=== PATIENT | female | born 1965 | race Hispanic/Latino ===

== ENCOUNTER 2016-12-04 17:53 | Inpatient (IN) | payer MEDICAID ==
[2016-12-04 18:32] LABS: BASO % 0.6 % (0.0-2.0); EOS # 0.2 K/uL (0.0-0.7); EOS % 2.1 % (0.0-4.0); HEMATOCRIT 40.1 % (34.0-47.0); LYMPH # 1.4 K/uL (1.0-4.3); LYMPH % 17.8 % (20.0-40.0); MEAN CELL VOLUME 66.8 fL (81.0-99.0); MEAN CORPUSCULAR HEMOGLOBIN 20.9 pg (27.0-31.0); MEAN CORPUSCULAR HGB CONC 31.3 g/dL (33.0-37.0); MEAN PLATELET VOLUME 9.4 fL (7.2-11.7); MONO # 0.5 K/uL (0.0-0.8); MONO % 6.3 % (0.0-10.0); NRBC % 0.2 % (0.0-2.0); RED CELL DISTRIBUTION WIDTH 16.2 % (11.5-14.5); WHITE BLOOD COUNT 7.6 K/uL (4.8-10.8)
--- NOTE | 2016-12-04 18:41 | C.PDOC ---
History Of Present Illness A 51 y/o female presents to the ER for pre-screening for heroin detox and alcohol abuse. Pt notes her last use was today. Pt denies any complaints at this time. Time Seen by Provider: 12/04/16 18:11 Chief Complaint (Nursing): Substance Abuse History Per: Patient History/Exam Limitations: no limitations Onset/Duration Of Symptoms: Hrs Current Symptoms Are (Timing): Still Present Suicide/Self Injury Attempted (Context): None Modifying Factor(s): Alcohol, Other (Heroin) Severity: Mild Recent travel outside of the [place] States: No Additional History Per: Patient Past Medical History Reviewed: Historical Data, Nursing Documentation, Vital Signs Vital Signs: Last Vital Signs Temp 97.5 F L 12/04/16 18:03 Pulse 95 H 12/04/16 18:03 Resp 18 12/04/16 18:03 BP 142/84 12/04/16 18:03 Pulse Ox 97 12/04/16 18:47 - Medical History PMH: Anemia, Anxiety, Back Problems, Depression, GERD, Chronic Pain (back pain ) Denies: Diabetes, Hepatitis, HIV, HTN, Chronic Kidney Disease, Seizures, Sexually Transmitted Disease Surgical History: Cholecystectomy - [facility] Procedures DETOXIFICATION SERVICES FOR SUBSTANCE ABUSE TREATMENT (08/01/16) INDIV PSYCHOTHERAPY FOR SUBSTANCE ABUSE TREATMENT, SUPPORT (08/01/16) MEDICATION MANAGEMENT (08/01/16) MEDS MGMT FOR SUBSTANCE ABUSE TREATMENT, OTH REPL MED (08/01/16) Family History: States: Unknown Family Hx - Social History Hx Tobacco Use: Yes Hx Alcohol Use: Yes Hx Substance Use: Yes - Immunization History Hx Tetanus Toxoid Vaccination: No Hx Influenza Vaccination: No Hx Pneumococcal Vaccination: No Review Of Systems Except As Marked, All Systems Reviewed And Found Negative. Constitutional: Positive for: Other (Heroin and ETOH abuse). Negative for: Fever, Chills Gastrointestinal: Negative for: Nausea, Vomiting, Diarrhea Psych: Negative for: Suicidal ideation Physical Exam - Physical Exam Appears: Non-toxic, No Acute Distress Skin: Warm, Dry Head: Atraumatic, Normacephalic Eye(s): bilateral: Normal Inspection, PERRL, EOMI Cardiovascular: Rhythm Regular, No Murmur Respiratory: Normal Breath Sounds, No Rales, No Rhonchi, No Wheezing Extremity: Other (Extensive tracts bilaterally on the forearms) Neurological/Psych: Normal Speech, Normal Motor, Normal Sensation, Other (Awake and alert) ED Course And Treatment - Laboratory Results Result Diagrams: 12/04/16 18:29 12/04/16 18:29 Lab Interpretation: Abnormal (tpx + benzo, cocaine, opiates) O2 Sat by Pulse Oximetry: 97 (RA) Pulse Ox Interpretation: Normal Reevaluation Time: 19:50 Reassessment Condition: Unchanged - Physician Consult Information Outcome Of Conversation: d/w Crisis workers @ 1800 and 2000- ok to Detox Medical Decision Making Medical Decision Making: Impression: 51 y/o for heroin detox Plans: -Bloodlabs -UA -Reassess and disposition Patient is resting comfortably, and is in no acute distress. Patient was instructed to follow up with PMD in 1-2 days for further evaluation. Disposition Doctor Will See Patient In The: Hospital Counseled Patient/Family Regarding: Studies Performed, Diagnosis - Disposition Disposition: HOSPITALIZED Disposition Time: 19:51 Condition: GOOD - Clinical Impression Clinical Impression: Polysubstance (including opioids) dependence with physiol dependence - Scribe Statement The provider has reviewed the documentation as recorded by the Scribfeliberto acuna All medical record entries made by the Mikkiibfeliberto were at my direction and personally dictated by me. I have reviewed the chart and agree that the record accurately reflects my personal performance of the history, physical exam, medical decision making, and the department course for this patient. I have also personally directed, reviewed, and agree with the discharge instructions and disposition.
[2016-12-04 18:56] LABS: CHLORIDE 95 mmol/L (98-107); SODIUM 138 mmol/L (132-148)
[2016-12-04 18:58] LABS: BILIRUBIN,TOTAL 0.8 mg/dL (0.2-1.3); CARBON DIOXIDE 31 mmol/L (22-30); GFR AFRICAN-AMERICAN > 60
[2016-12-04 18:59] LABS: ALCOHOL SERUM < 10 mg/dl (0-10); ALKALINE PHOSPHATASE 178 U/L (38-126); ALT/SGPT 56 U/L (9-52); AST/SGOT 65 U/L (14-36); BLOOD UREA NITROGEN 12 mg/dL (7-17); CALCIUM 9.4 mg/dl (8.6-10.4); GLUCOSE,RANDOM 107 mg/dL (65-105); TOTAL PROTEIN 9.3 g/dL (6.3-8.3)
[2016-12-04 19:01] LABS: RBC URINE 2 /hpf (0-3); URINE BACTERIA RARE (<OCC); URINE BILIRUBIN 1+ (NEGATIVE); URINE GLUCOSE (UA) NORMAL (Normal); URINE KETONE TRACE mg/dL (NEGATIVE); URINE PROTEIN 1+ mg/dL (NEGATIVE)
[2016-12-04 19:03] LABS: URINE BLOOD 1+ (NEGATIVE); URINE COLOR YELLOW (YELLOW); URINE LEUKOCYTE ESTERASE TRACE Leu/uL (Negative)
[2016-12-04 19:04] LABS: WBC URINE 4 /hpf (0-5)
[2016-12-05] MEDS ORDERED: Aluminum Hydroxide/Magnesium Hydroxide Susp (30 mL) PO PRN (10:07)
--- NOTE | 2016-12-05 12:52 | PCM.PSYCH ---
Initial Psychiatric Evaluation - Initial Psychiatric Evaluation Type of Admission: Voluntary Legal Status: Capacity Chief Complaint (in patient's own words): "I'm back" History of Present Illness and Precipitating Events: The patient is seen, chart reviewed and case discussed. This is a 51-year-old woman, living alone but sometimes boyfriend comes, unemployed, on SSI, she is known to us from a recent admission. The patient states she has been clean "54 days" after her July detox here. Now she uses up to 10 bags of heroin a day, intranasally, and 1 or 2 Percocets. She also uses cocaine on and off intranasally and she takes 3 mg Xanax. She claims that without Xanax she has excessive anxiety and panic attacks. She reports mild withdrawal symptoms as she used it last night. She denies feeling depressed and she looked somewhat hypomanic because she was very jovial and pressured speech Past psych history: Denies suicide attempts but was diagnosed with depression and anxiety. No trauma. Medical history: Back pain Family psych history: Unknown T Current Medications: Active Medications Generic Name Dose Route Start Last Admin Trade Name Freq PRN Reason Stop Dose Admin Al Hydrox/Mg Hydrox/Simethicone 30 ml 12/05/16 10:07 Maalox 30 Ml PO TID PRN Indigestion / Heartburn Chlordiazepoxide 25 mg 12/04/16 21:00 12/04/16 21:18 Librium PO 25 mg Q6 PRN Administration benzo withdrawal Chlordiazepoxide 25 mg 12/05/16 12:00 12/05/16 12:25 Librium PO 12/09/16 11:59 25 mg Q6 AYLIN Administration Taper Clonidine HCl 0.1 mg 12/05/16 10:07 12/05/16 12:27 Catapres PO 0.1 mg Q8 PRN Administration COWS Score More or Equal to 5 Gabapentin 300 mg 12/05/16 14:00 Neurontin PO TID AYLIN Hydroxyzine HCl 25 mg 12/05/16 10:06 12/05/16 12:25 Atarax PO 25 mg Q4H PRN Administration Anxiety Loperamide HCl 2 mg 12/05/16 10:07 Imodium PO Q8 PRN Diarrhea Methadone HCl 15 mg 12/05/16 10:00 12/05/16 10:35 Methadone PO 05/16/17 09:59 15 mg Q24H AYLIN Administration Taper Ondansetron HCl 4 mg 12/05/16 10:07 Zofran Tab PO Q8 PRN Nausea/Vomiting Sertraline HCl 100 mg 12/05/16 10:15 12/05/16 10:35 Zoloft PO 100 mg DAILY AYLIN Administration Trazodone HCl 100 mg 12/04/16 21:02 12/04/16 22:02 Desyrel PO 100 mg HS PRN Administration Insomnia Past Psychiatric History - Past Psychiatric History Previous Treatment History: None Pertinent Medical Hx (Current Medical&Sleep Prob, Allergies): Allergies Allergy/AdvReac Type Severity Reaction Status Date / Time No Known Allergies Allergy Verified 10/06/16 16:55 Alprazolam [Xanax] 1 mg PO TID 08/01/16 oxyCODONE/Acetaminophen [Percocet 5/325 mg Tab] 1 tab PO TID 08/01/16 Gabapentin [Neurontin] 300 mg PO TID #90 cap 08/05/16 Sertraline [Zoloft] 100 mg PO DAILY #30 tab 08/05/16 traZODone [Desyrel] 100 mg PO HS PRN #30 tab 08/05/16 Carisoprodol [Soma] 350 mg PO TID 12/04/16 Review of Systems - Psychiatric Psychiatric: Abnormal Sleep Pattern, Anxiety, Difficulty Concentrating, Irritability. absent: Hallucinations, Homicidal Ideation, Paranoia, Suicidal Ideation Mental Status Examination - Personal Presentation Personal Presentation: Looks older than stated age - Affect Affect: Other (labile) - Motor Activity Motor Activity: Other (restless) - Reliability in Providing Information Reliability in Providing Information: Fair - Speech Speech: Other (pressured) - Mood Mood: Anxious, Other (labile) - Formal Thought Process Formal Thought Process: Loosening of associations - Cognitive Functions Orientation: Person, Place, Situation, Time Sensorium: Alert Attention/Concentration: Easily distracted Estimate of Intelligence: Average Judgement: Intact, as evidence by: Insight regarding need for hospitalization Memory: Recent intact, as evidence by: Ability to recall events of the day, Remote intact, as evidenced by: Abilit to recall sig. life events - Risk Risk: Withdrawal, Diminished functioning - Strength & Assets Inventory Strength & Assets Inventory: Cooperative - Limitations Limitations: Living alone DSM 5 DX - DSM 5 DSM 5 Diagnosis: Opioid withdrawal Opioid use d/o - severe Sedative hypnotic use d/o - severe TATIANA Panic d/o r/o bipolar II - Recommended/Plan of Treatment Treatment Recommendations and Plan of Treatment: Opioids: - Subutex detox -As needed medications -Support and psychoeducation -NE and CBT -Attend groups and activities -refer to IOP -Refer to MAT Benzos: -Psychoeducation given on risks -NE and CBT -Librium taper -Gabapentin -Refer to IOP TATIANA and panic disorder: -Zoloft -CBT -Supportive therapy 32 min Projected ELOS: 4 days Prognosis: good - Smoking Cessation Smoking Cessation Initiated: Yes
--- NOTE | 2016-12-06 14:38 | PCM.PYCHPN ---
Psychiatric Progress Note - Psychiatric Progress Note Patient seen today, length of contact: 16 min Patient Chief Complaint: "I'm still withdrawing" Problems Identified/Issues Discussed: The pt is seen, chart reviewed, case discussed with staff. The pt is compliant with medications and reports no side-effects. Symptoms are improving but needs more time to stabilize. After care discussed, support and psychoeducation given. Medication Change: Yes (5 mg extra methadone) Medical Record Reviewed: Yes Mental Status Examination - Cognitive Function Orientation: Person, Place, Situation, Time - Mood Mood: Anxious, Other (labile) - Affect Affect: Other (labile) - Formal Thought Process Formal Thought Process: Loosening of associations - Homicidal Ideation Homicidal Ideation: No Goal/Treatment Plan - Goal/Treatment Plan Need for Continued Stay: Discharge may exacerbated symptoms, Severe functional impairment Progress Toward Problem(s) and Goals/Treatment Plan: Opioids: - Subutex detox -As needed medications -Support and psychoeducation -AL and CBT -Attend groups and activities -refer to IOP -Refer to MAT Benzos: -Psychoeducation given on risks -AL and CBT -Librium taper -Gabapentin -Refer to IOP TATIANA and panic disorder: -Zoloft -CBT -Supportive therapy Estimated Date of D/C: 12/09/16
--- NOTE | 2016-12-08 01:43 | PCM.PYCHPN ---
Psychiatric Progress Note - Psychiatric Progress Note Patient seen today, length of contact: 16 min Patient Chief Complaint: "I'm not OK yet" Problems Identified/Issues Discussed: The pt is seen, chart reviewed, case discussed with staff. The pt is compliant with medications and reports no side-effects. Symptoms are improving but needs more time to stabilize. Very anxious After care discussed, support and psychoeducation given. Medication Change: Yes (detox changes daily) Medical Record Reviewed: Yes Mental Status Examination - Cognitive Function Orientation: Person, Place, Situation, Time Memory: Intact Attention: Poor Concentration: Poor Association: Loose Fund of Knowledge: Poor - Mood Mood: Anxious, Other (labile) - Affect Affect: Other (labile) - Speech Speech: Appropriate - Formal Thought Process Formal Thought Process: Loosening of associations (less) - Suicidal Ideation Suicidal Ideation: No - Homicidal Ideation Homicidal Ideation: No Goal/Treatment Plan - Goal/Treatment Plan Need for Continued Stay: Discharge may exacerbated symptoms, Severe functional impairment Progress Toward Problem(s) and Goals/Treatment Plan: Opioids: - Subutex detox -As needed medications -Support and psychoeducation -KY and CBT -Attend groups and activities -refer to IOP -Refer to MAT Benzos: -Psychoeducation given on risks -KY and CBT -Librium taper -Gabapentin -Refer to IOP TATIANA and panic disorder: -Zoloft -CBT -Supportive therapy Estimated Date of D/C: 12/09/16
--- NOTE | 2016-12-08 14:13 | PCM.PYCHPN ---
Psychiatric Progress Note - Psychiatric Progress Note Patient seen today, length of contact: 16 min Patient Chief Complaint: "I'm tired" Problems Identified/Issues Discussed: The pt is seen, chart reviewed, case discussed with staff. The pt is compliant with medications and reports no side-effects. Symptoms are improving, less anxious and still has some sleep issues. Her insight into risks of benzos is minimal and is likely feigning motivation to stop. She sincerely believes she needs them for life. NE used again After care discussed, support and psychoeducation given. Medication Change: Yes (increase seroquel) Medical Record Reviewed: Yes Mental Status Examination - Cognitive Function Orientation: Person, Place, Situation, Time Memory: Intact Attention: Poor Concentration: Poor Association: Loose Fund of Knowledge: Poor - Mood Mood: Anxious, Other (labile) - Affect Affect: Other (labile) - Speech Speech: Appropriate - Formal Thought Process Formal Thought Process: Loosening of associations (much less) - Suicidal Ideation Suicidal Ideation: No - Homicidal Ideation Homicidal Ideation: No Goal/Treatment Plan - Goal/Treatment Plan Need for Continued Stay: Discharge may exacerbated symptoms, Severe functional impairment Progress Toward Problem(s) and Goals/Treatment Plan: Opioids: - Subutex detox -As needed medications -Support and psychoeducation -NE and CBT -Attend groups and activities -refer to IOP -Refer to MAT Benzos: -Psychoeducation given on risks -NE and CBT -Librium taper -Gabapentin -Refer to IOP TATIANA and panic disorder: -Zoloft -CBT -Supportive therapy Estimated Date of D/C: 12/09/16
--- NOTE | 2016-12-09 08:40 | PCM.PYCHDC ---
Mental Status Examination - Mental Status Examination Orientation: Person, Place, Situation, Time Memory: Intact Mood: Anxious Affect: Broad Speech: Appropriate Attention: WNL Concentration: WNL Association: WNL Fund of Knowledge: WNL Formal Thought Process: No Impairment Suicidal Ideation: No Current Homicidal Ideation?: No Discharge Summary - Discharge Note Reason for Hospitalization: Heroin detox Consultations:: List each consultation separately and include: 1. Reason for request. 2. Findings. 3. Follow-up Summary of Hospital Course include:: 1. Description of specific treatment plan utilized for patients during their course of treatmen. 2. Summarize the time- course for resolution of acute symptoms and/or regressed behaviors. 3. Describe issues identified and worked on during hospitalization. 4. Describe medication utilized. 5. Describe medical problems identified and treated. 6. Reassessment of suicide risk Summary of Hospital Course: The patient is seen, chart reviewed and case discussed. On admission: This is a 51-year-old woman, living alone but sometimes boyfriend comes, unemployed, on SSI, she is known to us from a recent admission. The patient states she has been clean "54 days" after her July detox here. Now she uses up to 10 bags of heroin a day, intranasally, and 1 or 2 Percocets. She also uses cocaine on and off intranasally and she takes 3 mg Xanax. She claims that without Xanax she has excessive anxiety and panic attacks. She reports mild withdrawal symptoms as she used it last night. She denies feeling depressed and she looked somewhat hypomanic because she was very jovial and pressured speech Hospital course: Pt feels well, feels anxious, and is ready for discharge. Pt will go to [facility] in [place]. Attended groups. NC, CBT used. Methadone detox completed. Pt responded well to treatment. No major issues or problems, she was motivated. - Final Diagnosis (DSM 5) Condition upon Discharge: GOOD DSM 5: Opioid withdrawal Opioid use d/o - severe Sedative hypnotic use d/o - severe TATIANA Panic d/o r/o bipolar II Disposition: HOME/ ROUTINE Follow-up Treatment Plan: Continue below meds Attend aftercare: [facility] IOP Attend NA Consider MAT Use relapse prevention skills Return to ER if experience suicidal ideation, homicidal ideation, agitation Prescriptions/Medication Reconciliation: busPIRone [Buspar] 15 mg PO BID #60 tab Gabapentin [Neurontin] 400 mg PO TID #90 cap hydrOXYzine HCl [Atarax] 25 mg PO Q8 PRN #60 tab PRN Reason: Anxiety QUEtiapine [SEROquel] 50 mg PO BID #60 tab Sertraline [Zoloft] 100 mg PO HS #30 tab traZODone [Desyrel] 100 mg PO HS PRN #30 tab PRN Reason: Insomnia - Smoking Cessation Smoking Cessation Medication prescribed: No - Antipsychotic Medications Pt discharged on 2 or more routine antipsychotic medications: No
[2016-12-09 09:09] VITALS: BP 113/72; PULSE 69; RESP 16; TEMP 97.8; O2SAT 97
== END 2016-12-09 09:55 | disposition home or self-care (01) | DRG 745 ==
LOC: C.ER 17:53 → C.7D 19:49
PROVIDERS: ADMIT Psychiatry & Neurology Psychiatry; ATTEND Psychiatry & Neurology Psychiatry
DX: F11.23 Opioid dependence with withdrawal (principal); F14.10 Cocaine abuse, uncomplicated; F41.0 Panic disorder [episodic paroxysmal anxiety]; F19.10 Other psychoactive substance abuse, uncomplicated; Z87.891 Personal history of nicotine dependence; F41.9 Anxiety disorder, unspecified; G47.00 Insomnia, unspecified

== ENCOUNTER 2017-07-09 18:13 | Inpatient (IN) | payer MEDICAID ==
[2017-07-09 18:13] VITALS: BMI 24.9
[2017-07-09 19:02] LABS: BASO % 0.3 % (0.0-2.0); EOS # 0.1 K/uL (0.0-0.7); EOS % 1.3 % (0.0-4.0); HEMATOCRIT 38.8 % (34.0-47.0); LYMPH # 2.1 K/uL (1.0-4.3); LYMPH % 31.7 % (20.0-40.0); MEAN CELL VOLUME 67.1 fL (81.0-99.0); MEAN CORPUSCULAR HEMOGLOBIN 20.8 pg (27.0-31.0); MEAN PLATELET VOLUME 9.2 fL (7.2-11.7); MONO # 0.5 K/uL (0.0-0.8); MONO % 7.9 % (0.0-10.0); NRBC % 0.1 % (0.0-2.0); RED CELL DISTRIBUTION WIDTH 16.1 % (11.5-14.5); WHITE BLOOD COUNT 6.5 K/uL (4.8-10.8)
[2017-07-09 19:06] LABS: RBC URINE 7 /hpf (0-3); URINE BACTERIA RARE (<OCC); URINE BILIRUBIN NEGATIVE (NEGATIVE); URINE BLOOD NEGATIVE (NEGATIVE); URINE COLOR Yellow (YELLOW); URINE GLUCOSE (UA) NORMAL (Normal); URINE KETONE NEGATIVE (NEGATIVE); URINE LEUKOCYTE ESTERASE NEG Leu/uL (Negative); URINE PROTEIN NEGATIVE (NEGATIVE); WBC URINE 1 /hpf (0-5)
--- NOTE | 2017-07-09 19:09 | C.PDOC ---
History Of Present Illness 51 year old female with Hx of heroin abuse presents to the ED requesting detox. Patient was prescreened before coming to the ED, she states she uses heroin IV and her last use was [facility]. Patient denies SI/HI, hallucinations, other physical complaints. Chief Complaint (Nursing): Substance Abuse History Per: Patient History/Exam Limitations: no limitations Onset/Duration Of Symptoms: Hrs Current Symptoms Are (Timing): Gone Suicide/Self Injury Attempted (Context): None Modifying Factor(s): Other (Heroin) Associated Symptoms: denies: Depression, Suicidal Thoughts, Suicidal Plan Involuntary Hold By: None Recent travel outside of the [place]: No Additional History Per: Patient Past Medical History Reviewed: Historical Data, Nursing Documentation, Vital Signs Vital Signs: Last Vital Signs Temp 97.5 F L 07/09/17 18:15 Pulse 81 07/09/17 18:15 Resp 19 07/09/17 18:15 BP 137/87 07/09/17 18:15 Pulse Ox 95 07/09/17 19:09 - Medical History PMH: Anemia (Hx.), Anxiety, Arthritis, Back Problems, Depression, Fractures (HX: FX. LEFT TIBIA AND ANKLE), GERD, Chronic Pain (back pain ) Denies: Diabetes, Hepatitis, HIV, HTN, Chronic Kidney Disease, Seizures, Sexually Transmitted Disease Surgical History: Cholecystectomy - [facility] Procedures DETOXIFICATION SERVICES FOR SUBSTANCE ABUSE TREATMENT (08/01/16) INDIV PSYCHOTHERAPY FOR SUBSTANCE ABUSE TREATMENT, SUPPORT (08/01/16) MEDICATION MANAGEMENT (08/01/16) MEDS MGMT FOR SUBSTANCE ABUSE TREATMENT, OTH REPL MED (08/01/16) Family History: States: Unknown Family Hx - Social History Hx Tobacco Use: Yes Hx Alcohol Use: No Hx Substance Use: Yes (IV) - Immunization History Hx Tetanus Toxoid Vaccination: No Hx Influenza Vaccination: No Hx Pneumococcal Vaccination: No Review Of Systems Constitutional: Negative for: Fever, Chills Cardiovascular: Negative for: Chest Pain, Palpitations Respiratory: Negative for: Cough, Shortness of Breath Gastrointestinal: Negative for: Nausea, Vomiting, Abdominal Pain Skin: Negative for: Rash Neurological: Negative for: Weakness, Numbness Physical Exam - Physical Exam Appears: Non-toxic, No Acute Distress Skin: Normal Color, Warm, Dry Head: Atraumatic, Normacephalic Nose: No Discharge Oral Mucosa: Moist Neck: Normal ROM, Supple Chest: Symmetrical Cardiovascular: Rhythm Regular, No Murmur Respiratory: Normal Breath Sounds, No Rales, No Rhonchi, No Wheezing Gastrointestinal/Abdominal: Soft, No Tenderness Extremity: Normal ROM, No Pedal Edema, No Calf Tenderness, No Swelling Neurological/Psych: Oriented x3, Normal Speech, Normal Cognition Gait: Steady ED Course And Treatment - Laboratory Results Result Diagrams: 07/09/17 18:54 07/09/17 18:54 O2 Sat by Pulse Oximetry: 95 (On RA) Pulse Ox Interpretation: Normal Medical Decision Making Medical Decision Making: Impression : Heroin detox Plan: * EKG * UA * Blood work Disposition - Disposition Forms: [facility] (Sinhala) - Scribe Statement The provider has reviewed the documentation as recorded by the Scribe Teodoro Huffman All medical record entries made by the Scribe were at my direction and personally dictated by me. I have reviewed the chart and agree that the record accurately reflects my personal performance of the history, physical exam, medical decision making, and the department course for this patient. I have also personally directed, reviewed, and agree with the discharge instructions and disposition.
[2017-07-09 19:12] LABS: ALB/GLOB RATIO 0.7 (1.0-2.1); ALCOHOL SERUM < 10 mg/dl (0-10); ALKALINE PHOSPHATASE 163 U/L (38-126); ALT/SGPT 78 U/L (9-52); AST/SGOT 44 U/L (14-36); BILIRUBIN,TOTAL 0.7 mg/dL (0.2-1.3); BLOOD UREA NITROGEN 17 mg/dL (7-17); CALCIUM 9.1 mg/dl (8.6-10.4); CARBON DIOXIDE 27 mmol/L (22-30); CHLORIDE 104 mmol/L (98-107); GFR AFRICAN-AMERICAN > 60; GLUCOSE,RANDOM 72 mg/dL (65-105); POTASSIUM 4.5 mmol/L (3.6-5.2); SODIUM 137 mmol/L (132-148); TOTAL PROTEIN 9.7 g/dL (6.3-8.3)
--- NOTE | 2017-07-09 21:14 | PCM.BM ---
<Sarah Starks - Last Filed: 07/09/17 21:13> Treatment Plan Problems - Problems identified on initial assessmt POTIENTIAL FOR OPIATE WITHDRAWAL Date Initiated: 07/09/17 Time Initiated: 21:13 Assessment reference: NA Status: Active Treatment assets and liabiliti Patient Assests: ADL independent Patient Liabilities: substance abuse, medical problems - Milieu Protocol Maintain good personal hygiene: daily Encourage regular showers, daily Remind patient to perform daily oral care, daily Assist patient to perform ADL's Maintain personal safety: every shift Educate patient to report safety concerns to staff, every shift Monitor environment for contraband/sharps Medication safety: Monitor for expected outcome, potential side effects: every shift, Assess barriers to learning: every shift, Assess readiness for medication education: every shift <Ivory Stearns - Last Filed: 07/10/17 15:04> Family Contact Family involvement: Famliy/SO not involved Family contact: Patient agrees to contact - Goals for Treatment Patient goals for treatment: Complete detox and attend an IOP near her home. Discharge/Continuing Care - Education Needs Education Needs: Patient Medication, Patient Diagnosis/Disease Process, Patient Coping Skills, Patient Anger Management skills, Patient Placement options, Patient Community resources - Discharge Discharge Criteria: Ability to care for self, No longer exhibiting s/s of withdrawal, Reduction of target symptoms Discharge to:: Home - Treatment Team Participation Patient/Family/SO Statement: 07/10/17 15:05 "I wanna go to [facility]. It's near my house." Discussed with Family/SO: No Was Patient/Family/SO present at Treatment Team Meeting: Yes <Lizzeth Alarcon - Last Filed: 07/12/17 18:08> - Diagnosis (1) Opioid use disorder, severe, dependence Status: Acute Interventions: 07/12/17 18:08 * Assess 7x/week regarding severity of withdrawal * Educate regarding risks, benefits, side effects and alternatives of medications * Use Motivational Interviewing for abstinence * Use CBT for relapse prevention * Medication management for withdrawal symptoms * Encourage medication assisted treatment *
[2017-07-09] MEDS ORDERED: Tramadol 25 mg PO PRN (21:46)
[2017-07-09] MEDS ORDERED: Aluminum Hydroxide/Magnesium Hydroxide Susp (30 mL) PO PRN (22:03)
--- NOTE | 2017-07-10 08:16 | RAD ---
Chest x-ray single frontal view History: Detox. Comparison: 05/31/2017 Findings: No focal infiltrate or effusion. Heart size within normal limits. Impression: No focal infiltrate or effusion.
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
--- NOTE | 2017-07-11 14:12 | PCM.PYCHPN ---
Psychiatric Progress Note - Psychiatric Progress Note Patient seen today, length of contact: 15 minutes Patient Chief Complaint: I'm doing much better with the treatment. Problems Identified/Issues Discussed: Patient seen, chart reviewed, case discussed with the staff. Issues related to illness and treatment were discussed with the patient. Reported compliant with treatment with no adverse effects. Tolerating treatment very well. Reported feeling much better with the treatment. Next Aftercare discussed with the patient. Denied any delusions, auditory or visual hallucinations, suicidal ideations or homicidal ideations at the time of evaluation. Medical Problems: None reported Diagnostic Results: Reviewed DSM 5 Symptoms Update: Improving with treatment. Medication Change: No Medical Record Reviewed: Yes Mental Status Examination - Cognitive Function Orientation: Person, Place, Situation, Time Memory: Intact Attention: WNL Concentration: WNL Association: WNL Fund of Knowledge: [facility] Decription of patient's judgement and insights: Fair - Mood Mood: Neutral - Affect Affect: Other (Appropriate) - Formal Thought Process Formal Thought Process: No Impairment Psychotic Thoughts and Behaviors: None - Suicidal Ideation Suicidal Ideation: No - Homicidal Ideation Homicidal Ideation: No Goal/Treatment Plan - Goal/Treatment Plan Need for Continued Stay: Remain at risks for inpatient hospitalization, Discharge may exacerbated symptoms, Severe functional impairment Progress Toward Problem(s) and Goals/Treatment Plan: Patient education. Supportive therapy. Continue treatment as before. Patient will go to [facility] outpatient for follow-up care after discharge from the hospital. Estimated Date of D/C: 07/13/17 - Smoking Cessation Smoking Cessation Initiated: No
--- NOTE | 2017-07-12 09:42 | CARD ---
APPROVED REPORT EKG Measurement Heart [id number] <Conclusion> Normal sinus rhythm Normal ECG
--- NOTE | 2017-07-12 15:19 | PCM.PYCHPN ---
Psychiatric Progress Note - Psychiatric Progress Note Patient seen today, length of contact: 15 minutes Patient Chief Complaint: "I have withdrawal symptoms" Problems Identified/Issues Discussed: The pt is seen, chart reviewed, case discussed with staff. The pt stated that he has anxiety. The pt is compliant with medications and reports no side- effects. Symptoms are improving but needs more time to stabilize. After care discussed, support and psychoeducation given Diagnostic Results: Opioid dependence, withdrawal symptoms, Medication Change: Yes (methadone and librium taper) Medical Record Reviewed: Yes Mental Status Examination - Cognitive Function Orientation: Person, Place, Situation, Time Memory: Intact Attention: WNL Concentration: WNL Association: [facility] Fund of Knowledge: WN - Mood Mood: Anxious - Affect Affect: Constricted, Other (Appropriate) - Speech Speech: Appropriate - Formal Thought Process Formal Thought Process: No Impairment Psychotic Thoughts and Behaviors: denied - Suicidal Ideation Suicidal Ideation: No - Homicidal Ideation Homicidal Ideation: No Goal/Treatment Plan - Goal/Treatment Plan Need for Continued Stay: Remain at risks for inpatient hospitalization, Discharge may exacerbated symptoms, Severe functional impairment Progress Toward Problem(s) and Goals/Treatment Plan: Methadone detox Librium detox Gabapentin for augmentation As needed meds and vitamins Attend groups and activities SD for abstinence and CBT for relapse prevention Support and psychoeducation Consider and encourage MAT Refer to after care Estimated Date of D/C: 07/13/17
[2017-07-12 16:14] VITALS: RESP 18
[2017-07-13 06:22] VITALS: TEMP 98.1
[2017-07-13 11:16] VITALS: BP 110/76; PULSE 18; O2SAT 98
== END 2017-07-13 11:00 | disposition home or self-care (01) | DRG 745 ==
LOC: C.ER 18:13 → C.7D 20:53
PROVIDERS: ADMIT Psychiatry & Neurology Psychiatry; ATTEND Psychiatry & Neurology Psychiatry
PROC: HZ2ZZZZ Detoxification Services for Substance Abuse Treatment (ICD-10-PCS; principal; 2017-07-09)
PROC: HZ59ZZZ Individual Psychotherapy for Substance Abuse Treatment, Supportive (ICD-10-PCS; 2017-07-09)
PROC: HZ46ZZZ Group Counseling for Substance Abuse Treatment, Psychoeducation (ICD-10-PCS; 2017-07-09)
PROC: GZ3ZZZZ Medication Management (ICD-10-PCS; 2017-07-09)
DX: F11.23 Opioid dependence with withdrawal (principal); F13.90 Sedative, hypnotic, or anxiolytic use, unspecified, uncomplicated; F14.90 Cocaine use, unspecified, uncomplicated; F32.9 Major depressive disorder, single episode, unspecified; F41.0 Panic disorder [episodic paroxysmal anxiety]; K21.9 Gastro-esophageal reflux disease without esophagitis; M54.9 Dorsalgia, unspecified; F17.210 Nicotine dependence, cigarettes, uncomplicated

== ENCOUNTER 2017-07-23 10:03 | Day surgery (SDC) | payer MEDICAID ==
--- NOTE | 2017-07-23 12:19 | CP.SDSHP ---
Same Day Surgery H & P - History Proposed Procedure: US guided FNA of right neck lymph node Pre-Op Diagnosis: LYmphadenopathy - Allergies Allergies: Allergies No Known Allergies Allergy (Verified 07/09/17 18:17) - Physical Exam Vital Signs: Vital Signs 07/23/17 10:37 Temperature 97.9 F Pulse Rate 86 Respiratory 20 Rate Blood Pressure 120/82 O2 Sat by Pulse 96 Oximetry Mental Status: Alert & Oriented x3 - Impression Impression: US showed multiple right neck nodes. The largest measures 3.2 cm x 2 cm. Plan US guided FNA. Pt. Evaluated Today:Candidate for Anesthesia & Procedure: No - Date & Time Date: 07/23/17 Time: 12:00 Short Stay Discharge - Short Stay Discharge Admitting Diagnosis/Reason for Visit: NECK MASS Disposition: HOME/ ROUTINE
--- NOTE | 2017-07-23 12:20 | PCM.SURG1 ---
Surgeon's Initial Post Op Note - Surgeon's Notes Surgeon: Travis Bella MD Director Of Litigation: NONE Pre-Operative Diagnosis: Lymphadenopathy Operative Findings: Multiple right neck node the largest of which is 3 cm x 2 cm. Post-Operative Diagnosis: Lymphadenopathy Operation Performed: US guided FNA Specimen/Specimens Removed: 7 passes Estimated Blood Loss: EBL {In ML}: 0 Blood Products Given: N/A Drains Used: No Drains Post-Op Condition: Fair Date of Surgery/Procedure: 07/23/17 Time of Surgery/Procedure: 12:15
[2017-07-23 12:45] VITALS: BP 115/65; PULSE 73; RESP 16; TEMP 97.1; O2SAT 95
== END 2017-07-23 14:15 | disposition home or self-care (01) ==
LOC: C.SDS 10:03
PROVIDERS: ATTEND Radiology Vascular & Interventional Radiology
DX: C96.9 Malignant neoplasm of lymphoid, hematopoietic and related tissue, unspecified (principal)

== ENCOUNTER 2017-09-11 09:49 | Day surgery (SDC) | payer MEDICAID ==
[2017-09-11] MEDS ORDERED: Propofol 10 mg/ml Inj (20 ML) ONE (12:31)
[2017-09-11] MEDS ORDERED: Lactated Ringer's 1,000 ML IV ONE ×2 (12:38)
[2017-09-11] MEDS ORDERED: ceFAZolin 1 GM in Sodium Chloride 0.9% 100 ML IVPB ONE (13:00)
[2017-09-11] MEDS ORDERED: ceFAZolin 1 gm FROZEN Premix 1 GM/50 ML ML IVPB ONE (13:00)
[2017-09-11 14:45] VITALS: TEMP 98.8
[2017-09-11 14:47] VITALS: RESP 13; O2SAT 100
[2017-09-11 14:51] VITALS: BP 164/97; PULSE 72
== END 2017-09-11 14:05 | disposition home or self-care (01) ==
LOC: C.ENDO 09:49
PROVIDERS: ATTEND Internal Medicine
DX: C14.0 Malignant neoplasm of pharynx, unspecified (principal); K29.50 Unspecified chronic gastritis without bleeding; K21.9 Gastro-esophageal reflux disease without esophagitis; F32.9 Major depressive disorder, single episode, unspecified; F41.9 Anxiety disorder, unspecified; D63.8 Anemia in other chronic diseases classified elsewhere; Z86.19 Personal history of other infectious and parasitic diseases; F17.210 Nicotine dependence, cigarettes, uncomplicated; K76.6 Portal hypertension; K31.89 Other diseases of stomach and duodenum
CPT/HCPCS: 43239; 43246; 88305; J0690; J2704; J7120

== ENCOUNTER 2017-10-12 07:21 | Day surgery (SDC) | payer MEDICAID ==
[2017-10-09 10:13] VITALS: BMI 22.4
[2017-10-12] MEDS: Bupivacaine HCl 0.25% PF (10 ml) Inj ONE ×2 (08:11→09:15)
[2017-10-12] MEDS ORDERED: HEPARIN-NS 5,000 UNITS/500 ML 5,000 UNIT/500 ML BAG IV ONE (08:11)
[2017-10-12] MEDS: Lidocaine/Epinephrine 1% 1:100000 10 ML IJ ONE ×2 (08:12→09:15)
[2017-10-12] MEDS: ceFAZolin IV 1 gm in Dextrose 1 GM/50 ML BAG IVPB ONE ×2 (08:13→09:05)
[2017-10-12] MEDS ORDERED: Midazolam 2 MG/2 ML VIAL ONE (08:55)
[2017-10-12] MEDS ORDERED: Propofol 10 mg/ml Inj (20 ML) ONE (08:55)
[2017-10-12] MEDS ORDERED: ceFAZolin 1 gm in NS 1 GM/100 ML BAG IVPB ONE (09:15)
--- NOTE | 2017-10-12 10:06 | PCM.SURG1 ---
Surgeon's Initial Post Op Note - Surgeon's Notes Surgeon: Dr. Perez [employer] Operator: Dr. Cantrell PGY-3 Type of Anesthesia: General Endo Anesthesia Administered By: Dr. King Pre-Operative Diagnosis: Throat Cancer Operative Findings: See operative report Post-Operative Diagnosis: Same Operation Performed: Insertion of Right IJ portacath Specimen/Specimens Removed: none Estimated Blood Loss: EBL {In ML}: 5 Blood Products Given: N/A Drains Used: No Drains Post-Op Condition: Good Date of Surgery/Procedure: 10/12/17 Time of Surgery/Procedure: 10:06
[2017-10-12] MEDS ORDERED: Oxycodone/Acetaminophen 5/325 mg Tab PO PRN (10:07)
[2017-10-12] MEDS ORDERED: Lactated Ringer's 1,000 ML IV SCH (10:15)
--- NOTE | 2017-10-12 11:34 | RAD ---
HISTORY: s/p Estrellita-Cath insertion RIJV COMPARISON: 07/09/2017. FINDINGS: The right Port-A-Cath terminates in the SVC. LUNGS: The lungs are well inflated and clear. PLEURA: No significant pleural effusion identified, no pneumothorax apparent. CARDIOVASCULAR: Normal. OSSEOUS STRUCTURES: No significant abnormalities. VISUALIZED UPPER ABDOMEN: Normal. OTHER FINDINGS: None. IMPRESSION: The right Port-A-Cath terminates in the SVC. No acute findings.
[2017-10-12 11:42] VITALS: O2SAT 100
[2017-10-12 11:59] VITALS: BP 103/70; PULSE 80; RESP 18; TEMP 97
--- NOTE | 2017-10-12 16:44 | RAD ---
PROCEDURE: Intraoperative Fluoroscopy. HISTORY: THROAT CA. FINDINGS: Fluoroscopic assistance was provided for Port-A-Cath placement. Please refer to the operative report from KATE Dexter. Total exam DLP: (mGy) 0.50. Total fluoroscopic time (continuous mode) utilized during the procedure: seconds. 12.2 seconds.
--- NOTE | 2017-10-13 03:25 | OP ---
PROCEDURE DATE: 10/12/2017 PREOPERATIVE DIAGNOSIS: Throat cancer. POSTOPERATIVE DIAGNOSIS: Throat cancer. PROCEDURE: 1. Right IJ Port-A-Cath insertion. 2. Ultrasound-guided venous access. 3. Intraoperative fluoroscopy. SURGEON: Nir Perez MD [facility]: Miguelina Cantrell, PGY-1 resident. TYPE OF ANESTHESIA: General endotracheal anesthesia. ESTIMATED BLOOD LOSS: Around 5 mL. DRAINS: None. PATHOLOGY: None. COMPLICATIONS: None. INTRAOPERATIVE FINDINGS: The patient had a patent right IJ on ultrasound. DESCRIPTION OF PROCEDURE: On intraoperative steps, this 52-year-old female was diagnosed with a throat cancer and the patient was consented for the Port-A-Cath insertion, brought to the OR, placed upon operating table after induction of the anesthesia. The chest and upper neck was prepped and draped in usual sterile fashion. Under ultrasound guidance, right IJ venous access was done, and the guidewire was placed. Fluoroscopic confirmation was done. Now, the right infraclavicular pouch was created and the catheter was tunneled from pouch up to the right IJ insertion site and the catheter was tunneled through the dilator sheath. Intraoperative fluoroscopic confirmation was done. Catheter was connected to the port and port was sutured to the floor of the pouch and port was accessed intraoperatively, it was functioning without any blockage. The wound was closed in 2 layers, subcu with a 2-0 Vicryl, skin with a 4-0 Monocryl. Another layer of the skin at right IJ insertion site and dry sterile dressing was applied. The patient tolerated the procedure well. The port was flushed with heparin, saline as well as with straight heparin. The patient tolerated the procedure well. Count of specimen was correct. The postoperative chest x-ray was ordered. The patient was sent to the post anesthesia care unit in stable condition after reversal of anesthesia. Nir Perez MD
== END 2017-10-12 12:39 | disposition home or self-care (01) ==
LOC: C.SDS 07:21
PROVIDERS: ATTEND Surgery Surgical Critical Care
DX: C14.0 Malignant neoplasm of pharynx, unspecified (principal)
CPT/HCPCS: 36561; 71045; C1788; J0690; J1644; J1885; J2250; J2704; J3010; J7040

== ENCOUNTER 2018-02-05 23:04 | Inpatient (IN) | payer MEDICAID ==
[2018-02-05 23:04] VITALS: BMI 22.4
[2018-02-06 00:47] LABS: BASO % 0.2 % (0.0-2.0); EOS % 0.7 % (0.0-4.0); HEMOGLOBIN 10.1 g/dL (11.0-16.0); LYMPH # 0.5 K/uL (1.0-4.3); LYMPH % 7.6 % (20.0-40.0); MEAN CORPUSCULAR HEMOGLOBIN 21.6 pg (27.0-31.0); MEAN CORPUSCULAR HGB CONC 32.8 g/dL (33.0-37.0); MEAN PLATELET VOLUME 9.4 fL (7.2-11.7); MONO # 0.7 K/uL (0.0-0.8); MONO % 10.9 % (0.0-10.0); NEUT # 5.1 K/uL (1.8-7.0); NEUT % 80.6 % (50.0-75.0); NRBC % 0.1 % (0.0-2.0); PLATELET COUNT 190 K/uL (130-400); RBC 4.67 Mil/uL (3.80-5.20); WHITE BLOOD COUNT 6.3 K/uL (4.8-10.8)
[2018-02-06 00:55] LABS: SQUAMOUS EPITHIAL < 1 /hpf (0-5); URINE BACTERIA RARE (<OCC); URINE BILIRUBIN NEGATIVE (NEGATIVE); URINE BLOOD NEGATIVE (NEGATIVE); URINE CLARITY Hazy (Clear); URINE COLOR Amber (YELLOW); URINE GLUCOSE (UA) NORMAL (Normal); URINE LEUKOCYTE ESTERASE NEG Leu/uL (Negative); URINE PROTEIN NEGATIVE (NEGATIVE); URINE UROBILINOGEN NORMAL mg/dL (0.2-1.0)
[2018-02-06 00:59] LABS: ALB/GLOB RATIO 0.9 (1.0-2.1); ALBUMIN 3.9 g/dL (3.5-5.0); CALCIUM 9.3 mg/dl (8.6-10.4); GFR AFRICAN-AMERICAN > 60; GFR NON-AFRICAN AMERICAN > 60
[2018-02-06 01:03] LABS: ALT/SGPT 35 U/L (9-52); AST/SGOT 85 U/L (14-36); BLOOD UREA NITROGEN 18 mg/dL (7-17)
[2018-02-06 01:04] LABS: BARBITURATES, UR NEGATIVE (NEGATIVE); BENZODIAZEPINES, UR POSITIVE (NEGATIVE); OPIATES, UR POSITIVE (NEGATIVE); PHENCYCLIDINE, UR NEGATIVE (NEGATIVE)
[2018-02-06 01:19] LABS: ANISOCYTOSIS MODERATE; EOSINOPHIL 1 % (0-4); LYMPHOCYTE 8 % (20-40); MONOCYTE 8 % (0-10); NEUTROPHIL 83 % (50-75); PLATELET ESTIMATE NORMAL (NORMAL); POIKILOCYTOSIS SLIGHT; TOTAL CELLS COUNTED 100
--- NOTE | 2018-02-06 01:37 | C.PDOC ---
History Of Present Illness 52 year old female presents to the ER requesting detox from heroin. Patient states she uses IV heroin daily. Currently, she feels a little nauseous but otherwise has no physical complaints. Patient denies suicidal or homicidal ideations. Time Seen by Provider: 02/05/18 23:45 Chief Complaint (Nursing): Substance Abuse History Per: Patient History/Exam Limitations: no limitations Onset/Duration Of Symptoms: Days Current Symptoms Are (Timing): Still Present Modifying Factor(s): Other (Heroin) Severity: Moderate Involuntary Hold By: None Recent travel outside of the [place]: No Past Medical History Reviewed: Historical Data, Nursing Documentation, Vital Signs Vital Signs: Last Vital Signs Temp 98.7 F 02/08/18 08:42 Pulse 60 02/08/18 08:42 Resp 20 02/08/18 08:42 BP 161/74 H 02/08/18 08:42 Pulse Ox 97 02/08/18 08:42 - Medical History PMH: Anemia, Anxiety, Arthritis, Back Problems, Depression, Fractures (HX:FX. LEFT TIBIA AND ANKLE), GERD, Hepatitis (C), Chronic Pain (back pain ) Surgical History: Cholecystectomy, Endoscopy (peg insertion) - [facility] Procedures DETOXIFICATION SERVICES FOR SUBSTANCE ABUSE TREATMENT (07/09/17) GROUP HEATER ROOM HELPER FOR SUBSTANCE ABUSE TREATMENT, PSYCHOEDUCATION (07/09/17) INDIV PSYCHOTHERAPY FOR SUBSTANCE ABUSE TREATMENT, SUPPORT (07/09/17) MEDICATION MANAGEMENT (07/09/17) MEDS MGMT FOR SUBSTANCE ABUSE TREATMENT, OTH REPL MED (08/01/16) Family History: States: No Known Family Hx - Social History Hx Tobacco Use: Yes Hx Alcohol Use: No Hx Substance Use: Yes (HEROIN/COCAINE(DETOX 07/09/17 @ [facility])) - Immunization History Hx Tetanus Toxoid Vaccination: No Hx Influenza Vaccination: No Hx Pneumococcal Vaccination: No Review Of Systems Constitutional: Negative for: Fever, Chills Cardiovascular: Negative for: Chest Pain, Palpitations Respiratory: Negative for: Shortness of Breath Gastrointestinal: Positive for: Nausea. Negative for: Vomiting, Abdominal Pain , Diarrhea Skin: Negative for: Rash Neurological: Negative for: Headache, Dizziness Physical Exam - Physical Exam Appears: Well, Non-toxic, No Acute Distress Skin: Normal Color, Warm, Dry Head: Normacephalic Eye(s): bilateral: Normal Inspection Oral Mucosa: Moist Neck: Supple Cardiovascular: Rhythm Regular Respiratory: Normal Breath Sounds, No Rales, No Rhonchi, No Wheezing Gastrointestinal/Abdominal: Normal Exam, Bowel Sounds, Soft, No Tenderness Extremity: Normal ROM, No Pedal Edema, No Calf Tenderness Neurological/Psych: Oriented x3 ED Course And Treatment - Laboratory Results Result Diagrams: 02/06/18 00:40 02/06/18 00:40 O2 Sat by Pulse Oximetry: 98 (Room air) Pulse Ox Interpretation: Normal Progress Note: Blood work, UA, UDS ordered and reviewed. 2:30- Patient medically cleared. 2:45- Patient accepted by Dr. Doran for heroin dependence detox admission. Disposition - Disposition Disposition: HOSPITALIZED Disposition Time: 02:45 Condition: STABLE - Clinical Impression Clinical Impression: Heroin dependence - Scribe Statement The provider has reviewed the documentation as recorded by the Scribe Simeon Garcia All medical record entries made by the Scribe were at my direction and personally dictated by me. I have reviewed the chart and agree that the record accurately reflects my personal performance of the history, physical exam, medical decision making, and the department course for this patient. I have also personally directed, reviewed, and agree with the discharge instructions and disposition. Decision To Admit - Pt Status Changed To: Hospital Disposition Of: Inpatient - Admit Certification Admit to Inpatient:: After my assessment, the patient will require hospitalization for at least two midnights. This is because of the severity of symptoms shown, intensity of services needed, and/or the medical risk in this patient being treated as an outpatient. - InPatient: Physician Admission Certification: I certify that this patient requires 2 or more midnights of care for the following reason:: see notes - . Bed Request Type: Detox Admitting Physician: Stanford Doran Patient Diagnosis: Heroin dependence
--- NOTE | 2018-02-06 03:18 | PCM.BM ---
<Yamila Weinstein M - Last Filed: 02/06/18 03:17> Treatment Plan Problems - Problems identified on initial assessmt Ineffective Coping Skils Date Initiated: 02/06/18 Time Initiated: 03:18 Assessment reference: NA Status: Active Treatment assets and liabiliti Patient Assests: ADL independent Patient Liabilities: substance abuse, medical problems - Milieu Protocol Maintain good personal hygiene: daily Encourage regular showers, daily Remind patient to perform daily oral care, other Assist patient to perform ADL's Maintain personal safety: every shift Educate patient to report safety concerns to staff, every shift Monitor environment for contraband/sharps Medication safety: Monitor for expected outcome, potential side effects: every shift, Assess barriers to learning: every shift, Assess readiness for medication education: every shift <Ivory Stearns - Last Filed: 02/10/18 09:06> Family Contact Family involvement: Family/SO is involved Family contact: Patient agrees to contact - Goals for Treatment Patient goals for treatment: Complete detox and transition to IOP. Discharge/Continuing Care - Education Needs Education Needs: Family Medication, Family Diagnosis/Disease Process, Family Placement options, Family Community resources, Patient Medication, Patient Diagnosis/Disease Process, Patient Coping Skills, Patient Anger Management skills, Patient Placement options, Patient Community resources - Discharge Discharge Criteria: No longer exhibiting s/s of withdrawal, Reduction of target symptoms Discharge to:: Home, With Family - Treatment Team Participation Patient/Family/SO Statement: 02/10/18 09:06 "I [facility] go to [facility] for IOP if I can..." Discussed with Family/SO: No Was Patient/Family/SO present at Treatment Team Meeting: Yes
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
[2018-02-06] MEDS: MAVYRET 100MG/40MG TABLET PO SCH (19:54)
--- NOTE | 2018-02-07 11:11 | PCM.PYCHPN ---
Psychiatric Progress Note - Psychiatric Progress Note Patient seen today, length of contact: 15 min Patient Chief Complaint: I am withdrawing.' Problems Identified/Issues Discussed: Patient seen and evaluated, chart reviewed and discussed with the nurse. She reports irritable mood. As per staff she remained isolate and withdrawn. She still reports withdrawal symptoms including headaches, sweating, anxiety and shakes. She denies any SI/HI or AVH or any paranoia. Patient is compliant with medications and denies any side effects. Symptoms are improving but needs more time to stabilize. Support and psychoeducation given. Medication Change: Yes (methadone yaper) Medical Record Reviewed: Yes Mental Status Examination - Cognitive Function Orientation: Person, Place, Situation, Time Memory: Intact Attention: WNL Concentration: Poor Association: WNL Fund of Knowledge: Poor - Mood Mood: Anxious - Affect Affect: Constricted - Speech Speech: Soft - Formal Thought Process Formal Thought Process: No Impairment - Suicidal Ideation Suicidal Ideation: No - Homicidal Ideation Homicidal Ideation: No Goal/Treatment Plan - Goal/Treatment Plan Need for Continued Stay: Severe depression anxiety, Severe functional impairment Progress Toward Problem(s) and Goals/Treatment Plan: Opiate use disorder severe Opiate withdrawal Cocaine use disorder mild Depressive disorder Hep C Arthritis Taper with methadone Gabapentin for augmentation if needed Zoloft 100 mg mg daily Trazodone 50 mg As needed medications All risks, benefits and alternatives of the meds discussed, and the pt agreed and understood. Attend groups and activities Supportive therapy and psychoeducation [place] for abstinence CBT for relapse prevention Encourage MAT Refer to rehab or IOP, and self-help groups Smoking cessation with [place] Nicotine patch if needed
[2018-02-07] MEDS: MAVYRET 100MG/40MG TABLET PO SCH (20:01)
[2018-02-08] MEDS: Aluminum Hydroxide/Magnesium Hydroxide Susp (30 mL) PO PRN (09:44)
[2018-02-08] MEDS ORDERED: Ergocalciferol 50,000 Intl Units Cap PO SCH (10:00)
--- NOTE | 2018-02-08 15:59 | PCM.PYCHPN ---
Psychiatric Progress Note - Psychiatric Progress Note Patient seen today, length of contact: 15 min Patient Chief Complaint: "I am nauseous" Problems Identified/Issues Discussed: Patient was seen, discussed and chart reviewed with the nurse. The patient reports nausea and diarrhea today. She denies any suicidal ideations, audio or visual hallucinations. She reports that her anxiety has been worse and she feels nervous. She requests a change to her anxiety medications. Symptoms are improving but still needs time to stabilize Medication Change: Yes (methadone yaper) Medical Record Reviewed: Yes Mental Status Examination - Cognitive Function Orientation: Person, Place, Situation, Time Memory: Intact Attention: WNL Concentration: Poor Association: WNL Fund of Knowledge: Poor - Mood Mood: Anxious - Affect Affect: Constricted - Speech Speech: Soft - Formal Thought Process Formal Thought Process: No Impairment - Suicidal Ideation Suicidal Ideation: No - Homicidal Ideation Homicidal Ideation: No Goal/Treatment Plan - Goal/Treatment Plan Need for Continued Stay: Severe depression anxiety, Severe functional impairment Progress Toward Problem(s) and Goals/Treatment Plan: Continue taper with methadone Gabapentin for augmentation Zoloft 100 mg daily Trazodone 50 mg As needed medications All risks, benefits of the medication discussed Attend groups and activities Supportive therapy and psychoeducation [place] for abstinence CBT for relapse Smoking cessation with [place] Nicotine patch if needed
[2018-02-08] MEDS: MAVYRET 100MG/40MG TABLET PO SCH (19:04)
--- NOTE | 2018-02-09 14:34 | PCM.PYCHPN ---
Psychiatric Progress Note - Psychiatric Progress Note Patient seen today, length of contact: 16 min Patient Chief Complaint: "I am not well" Problems Identified/Issues Discussed: Patient seen chart discussed and reviewed with the nurse. The patient states that he is better than yesterday. She states that he still is shaking however it is improved. The patient reports that her sleep is better. Symptoms are improving but still needs time to stabilize. Medication Change: Yes (methadone yaper) Medical Record Reviewed: Yes Mental Status Examination - Cognitive Function Orientation: Person, Place, Situation, Time Memory: Intact Attention: WNL Concentration: Poor Association: WNL Fund of Knowledge: Poor - Mood Mood: Anxious - Affect Affect: Constricted - Speech Speech: Soft - Formal Thought Process Formal Thought Process: No Impairment - Suicidal Ideation Suicidal Ideation: No - Homicidal Ideation Homicidal Ideation: No Goal/Treatment Plan - Goal/Treatment Plan Need for Continued Stay: Discharge may exacerbated symptoms, Severe functional impairment Progress Toward Problem(s) and Goals/Treatment Plan: Continue taper with methadone Gabapentin for augmentation Zoloft 100 mg daily Trazodone 50 mg As needed medications All risks, benefits of the medication discussed Attend groups and activities Supportive therapy and psychoeducation [place] for abstinence CBT for relapse Smoking cessation with [place] Nicotine patch if needed
[2018-02-09] MEDS: MAVYRET 100MG/40MG TABLET PO SCH (19:47)
[2018-02-10 12:17] VITALS: RESP 18
--- NOTE | 2018-02-10 15:08 | PCM.PYCHPN ---
Psychiatric Progress Note - Psychiatric Progress Note Patient seen today, length of contact: 15 min Patient Chief Complaint: "I am ok" Problems Identified/Issues Discussed: Patient seen chart discussed and reviewed with the nurse. The patient states that she is still slightly nauseous but better than yesterday. She also complains of hot and cold sweats. The patient denies suicidal ideations. Medication Change: Yes (methadone yaper) Medical Record Reviewed: Yes Mental Status Examination - Cognitive Function Orientation: Person, Place, Situation, Time Memory: Intact Attention: WNL Concentration: Poor Association: WNL Fund of Knowledge: Poor - Mood Mood: Anxious - Affect Affect: Constricted - Speech Speech: Appropriate, Soft - Formal Thought Process Formal Thought Process: No Impairment - Suicidal Ideation Suicidal Ideation: No - Homicidal Ideation Homicidal Ideation: No Goal/Treatment Plan - Goal/Treatment Plan Need for Continued Stay: Severe depression anxiety, Severe functional impairment Progress Toward Problem(s) and Goals/Treatment Plan: Continue taper with methadone Gabapentin for augmentation Zoloft 100 mg daily Trazodone 50 mg As needed medications All risks, benefits of the medication discussed Attend groups and activities Supportive therapy and psychoeducation [place] for abstinence CBT for relapse Smoking cessation with [place] Nicotine patch if needed 15 min
[2018-02-10] MEDS: MAVYRET 100MG/40MG TABLET PO SCH (19:05)
[2018-02-10] MEDS: Aluminum Hydroxide/Magnesium Hydroxide Susp (30 mL) PO PRN (19:58)
--- NOTE | 2018-02-11 08:57 | PCM.PYCHDC ---
Mental Status Examination - Mental Status Examination Orientation: Person Discharge Summary - Discharge Note Consultations:: List each consultation separately and include: 1. Reason for request. 2. Findings. 3. Follow-up Summary of Hospital Course include:: 1. Description of specific treatment plan utilized for patients during their course of treatmen. 2. Summarize the time- course for resolution of acute symptoms and/or regressed behaviors. 3. Describe issues identified and worked on during hospitalization. 4. Describe medication utilized. 5. Describe medical problems identified and treated. 6. Reassessment of suicide risk Summary of Hospital Course: She will go to [facility] in . - Final Diagnosis (DSM 5) Condition upon Discharge: STABLE Disposition: HOME/ ROUTINE Follow-up Treatment Plan: Continue taper with methadone Gabapentin for augmentation Zoloft 100 mg daily Trazodone 50 mg As needed medications All risks, benefits of the medication discussed Attend groups and activities Supportive therapy and psychoeducation [place] for abstinence CBT for relapse Smoking cessation with [place] Nicotine patch if needed 15 min Prescriptions/Medication Reconciliation: Ergocalciferol [Drisdol 50,000 Intl Units Cap] 50,000 iu PO QWK #4 cap Gabapentin [Neurontin] 400 mg PO TID #90 cap hydrOXYzine HCl [Atarax] 50 mg PO BID PRN #60 tab PRN Reason: Anxiety Sertraline [Zoloft] 100 mg PO DAILY #30 tab traZODone [Desyrel] 50 mg PO HS #30 tab
[2018-02-11 09:18] VITALS: BP 155/92; PULSE 53; TEMP 98.4; O2SAT 99
[2018-02-11] MEDS ORDERED: guaiFENesin 600 mg ER Tab PO SCH (10:00)
== END 2018-02-11 10:10 | disposition home or self-care (01) | DRG 744 ==
LOC: C.ER 23:04 → C.7D 02-06 02:45
PROVIDERS: ADMIT Psychiatry & Neurology Psychiatry; ATTEND Psychiatry & Neurology Psychiatry
PROC: HZ2ZZZZ Detoxification Services for Substance Abuse Treatment (ICD-10-PCS; principal; 2018-02-06)
PROC: HZ59ZZZ Individual Psychotherapy for Substance Abuse Treatment, Supportive (ICD-10-PCS; 2018-02-06)
PROC: GZ3ZZZZ Medication Management (ICD-10-PCS; 2018-02-06)
PROC: HZ46ZZZ Group Counseling for Substance Abuse Treatment, Psychoeducation (ICD-10-PCS; 2018-02-06)
DX: F11.23 Opioid dependence with withdrawal (principal); F14.10 Cocaine abuse, uncomplicated; F32.9 Major depressive disorder, single episode, unspecified; F41.0 Panic disorder [episodic paroxysmal anxiety]; F17.210 Nicotine dependence, cigarettes, uncomplicated; B19.20 Unspecified viral hepatitis C without hepatic coma; C09.9 Malignant neoplasm of tonsil, unspecified; K21.9 Gastro-esophageal reflux disease without esophagitis; M19.90 Unspecified osteoarthritis, unspecified site

== ENCOUNTER 2018-04-12 17:55 | Inpatient (IN) | payer MEDICAID ==
[2018-04-12 17:55] VITALS: BMI 21.2
--- NOTE | 2018-04-12 19:46 | C.PDOC ---
History Of Present Illness 52-year-old female, presents to the emergency department with complaints of irritation to peg site. Patient denies nausea/vomiting, fever, chills, or any other associated symptoms. No other complaints at this time Time Seen by Provider: 04/12/18 19:46 Chief Complaint (Nursing): Abnormal Skin Integrity History Per: Patient History/Exam Limitations: no limitations Onset/Duration Of Symptoms: Days Current Symptoms Are (Timing): Still Present Quality Of Symptoms: Swollen, Draining Severity: Moderate Pain Scale Rating Of: 4 Recent travel outside of the [place]: No Additional History Per: Family Past Medical History Reviewed: Historical Data, Nursing Documentation, Vital Signs Vital Signs: Last Vital Signs Temp 98.3 F 04/12/18 21:18 Pulse 86 04/12/18 21:18 Resp 12 04/12/18 21:18 BP 104/68 04/12/18 21:18 Pulse Ox 97 04/12/18 21:21 - Medical History PMH: Anemia, Anxiety, Arthritis, Back Problems, Depression, Fractures (HX:FX. LEFT TIBIA AND ANKLE), GERD, Hepatitis (C), Chronic Pain (back pain ) Denies: Diabetes, HIV, Chronic Kidney Disease, Sexually Transmitted Disease Surgical History: Cholecystectomy, Endoscopy (peg insertion) - [facility] Procedures DETOXIFICATION SERVICES FOR SUBSTANCE ABUSE TREATMENT (02/06/18) GROUP METAL MACHINE SETTER FOR SUBSTANCE ABUSE TREATMENT, PSYCHOEDUCATION (02/06/18) INDIV PSYCHOTHERAPY FOR SUBSTANCE ABUSE TREATMENT, SUPPORT (02/06/18) MEDICATION MANAGEMENT (02/06/18) MEDS MGMT FOR SUBSTANCE ABUSE TREATMENT, OTH REPL MED (08/01/16) Family History: States: No Known Family Hx - Social History Hx Tobacco Use: Yes Hx Alcohol Use: No Hx Substance Use: Yes - Immunization History Hx Tetanus Toxoid Vaccination: No Hx Influenza Vaccination: Yes (2016) Hx Pneumococcal Vaccination: Yes Review Of Systems Except As Marked, All Systems Reviewed And Found Negative. Constitutional: Negative for: Fever ENT: Positive for: Throat Pain Cardiovascular: Negative for: Chest Pain Respiratory: Negative for: Shortness of Breath Gastrointestinal: Negative for: Vomiting Genitourinary: Negative for: Dysuria Skin: Positive for: Other (pain to peg site) Neurological: Negative for: Weakness Psych: Positive for: Anxiety Physical Exam - Physical Exam Appears: Non-toxic, No Acute Distress Skin: Normal Color, Warm, Dry, No Rash Head: Atraumatic, Normacephalic Eye(s): bilateral: Normal Inspection Nose: Normal Oral Mucosa: Moist Lips: Normal Appearing Neck: Supple Chest: Symmetrical Cardiovascular: Rhythm Regular, No Murmur Respiratory: Normal Breath Sounds, No Accessory Muscle Use Gastrointestinal/Abdominal: Soft, No Tenderness (there is minimal erythema and yellowish exudate to peg site.), No Guarding, No Rebound Back: Normal Inspection Extremity: Normal ROM, No Deformity Pulses: Left Dorsalis Pedis: Normal, Right Dorsalis Pedis: Normal Neurological/Psych: Oriented x3, Normal Speech Gait: Steady ED Course And Treatment - Laboratory Results Result Diagrams: 04/12/18 21:52 04/12/18 21:52 O2 Sat by Pulse Oximetry: 97 Pulse Ox Interpretation: Normal (RA) Medical Decision Making Medical Decision Making: Plan: * Xanax * Reassess and Disposition Disposition Discussed With : Todd Jennings Comment: accepted the pt on his service and took over the care at10:47 PM Counseled Patient/Family Regarding: Studies Performed, Diagnosis - Disposition Disposition: HOSPITALIZED Disposition Time: 19:46 Condition: FAIR Forms: [employer] (Swedish) - POA Present On Arrival: Surgical Site Infection - Clinical Impression Clinical Impression: Skin irritation, Neck mass, Cellulitis - Scribe Statement The provider has reviewed the documentation as recorded by the Scribe (Kisha Aden) Provider Attestation: All medical record entries made by the Scribe were at my direction and personally dictated by me. I have reviewed the chart and agree that the record accurately reflects my personal performance of the history, physical exam, medical decision making, and the department course for this patient. I have also personally directed, reviewed, and agree with the discharge instructions and disposition. Decision To Admit - Pt Status Changed To: Hospital Disposition Of: Inpatient - Admit Certification Admit to Inpatient:: After my assessment, the patient will require hospitalization for at least two midnights. This is because of the severity of symptoms shown, intensity of services needed, and/or the medical risk in this patient being treated as an outpatient. - InPatient: Physician Admission Certification: I certify that this patient requires 2 or more midnights of care for the following reason:: After my assessment, the patient will require hospitalization for at least two midnights. This is because of the severity of symptoms shown, intensity of services needed, and/or the medical risk in this patient being treated as an outpatient. - . Bed Request Type: Regular Admitting Physician: Todd Jennings Patient Diagnosis: Skin irritation, Neck mass, Cellulitis
[2018-04-12] MEDS ORDERED: Piperacillin/Tazobact 3.375 GM in Sodium Chloride 100 ML IVPB STA (21:24)
[2018-04-12] MEDS ORDERED: Sodium Chloride 0.9% 1,000 ML IV ONE (21:24)
[2018-04-12 21:59] LABS: BASO % 0.2 % (0.0-2.0); EOS # 0.1 K/uL (0.0-0.7); EOS % 1.7 % (0.0-4.0); HEMOGLOBIN 9.7 g/dL (11.0-16.0); LYMPH # 0.7 K/uL (1.0-4.3); LYMPH % 17.2 % (20.0-40.0); MEAN CELL VOLUME 66.5 fL (81.0-99.0); MEAN CORPUSCULAR HEMOGLOBIN 21.2 pg (27.0-31.0); MEAN CORPUSCULAR HGB CONC 31.9 g/dL (33.0-37.0); MONO # 0.5 K/uL (0.0-0.8); MONO % 12.4 % (0.0-10.0); NEUT # 2.8 K/uL (1.8-7.0); NEUT % 68.5 % (50.0-75.0); NRBC % 0.2 % (0.0-2.0); RBC 4.58 Mil/uL (3.80-5.20); RED CELL DISTRIBUTION WIDTH 16.2 % (11.5-14.5); WHITE BLOOD COUNT 4.2 K/uL (4.8-10.8)
[2018-04-12] MEDS ORDERED: Piperacillin/Tazobact 3.375 gm 100 ML IVPB ONE (21:59)
[2018-04-12 22:01] LABS: VENOUS BLOOD GAS BASE EXCESS 9.9 mmol/L (0.0-2.0); VENOUS BLOOD GAS PCO2 58 mmHg (40-60); VENOUS BLOOD GAS PO2 23 mm/Hg (30-55); VENOUS BLOOD PH 7.41 (7.32-7.43)
[2018-04-12 22:10] LABS: INR 1.2; PROTHROMBIN TIME 12.7 SECONDS (9.7-12.2)
[2018-04-12 22:30] LABS: SQUAMOUS EPITHIAL 1 /hpf (0-5); URINE BACTERIA RARE (<OCC); URINE BILIRUBIN NEGATIVE (NEGATIVE); URINE BLOOD NEGATIVE (NEGATIVE); URINE CLARITY Clear (Clear); URINE COLOR Yellow (YELLOW); URINE GLUCOSE (UA) NORMAL (Normal); URINE LEUKOCYTE ESTERASE NEG Leu/uL (Negative); URINE PROTEIN NEGATIVE (NEGATIVE); URINE UROBILINOGEN NORMAL mg/dL (0.2-1.0)
--- NOTE | 2018-04-12 22:31 | CP.PCM.CON ---
<Christelle Alford - Last Filed: 04/12/18 22:28> History of Present Illness - History of Present Illness History of Present Illness: General surgery consult note for Dr. 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 Pt reports that for past 1.5 mos she noted increased buring discomfort at PEG insertion site, has been having yellow/green mucus drainage around tube with "tissue coming out of it". Also admits to fevers at home Tmax 102.9, chills alleviated by Tylenol, occasional dysphagia, odynophagia, chronic back pain, neck pain. Tolerating diet, eating slowly with water between bites. Denies SOB, constipation,diarrhea, cough, rhinorrhea, changes in urinary habits, other complaints. 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 absent: Headache - EENT Eyes: absent: Change in Vision Ears: absent: Dizziness Nose/Mouth/Throat: Odynophagia, Sore Throat, Tongue Swelling - Cardiovascular Cardiovascular: absent: Chest Pain - Respiratory Respiratory: absent: Cough - Gastrointestinal Gastrointestinal: absent: Abdominal Pain, Constipation, Diarrhea, Hematemesis, Hematochezia, Nausea, Vomiting - Genitourinary Genitourinary: absent: Change in Urinary Stream, Dysuria, Hematuria - Musculoskeletal Musculoskeletal: Back Pain (chronic). absent: Numbness, Tingling Past Patient History - Infectious Disease Hx of Infectious Diseases: None - Past Medical History & Family History Past Medical History?: Yes - Past Social History Smoking Status: Light Smoker < 10 Cigarettes Daily - PULMONARY Hx Respiratory Disorders: No - HEENT Hx HEENT Problems: Yes Other/Comment: throat cancer - RENAL Hx Chronic Kidney Disease: No - ENDOCRINE/METABOLIC Hx Endocrine Disorders: No - HEMATOLOGICAL/ONCOLOGICAL Hx Anemia: Yes Hx Human Immunodeficiency Virus (HIV): No - INTEGUMENTARY Hx Dermatological Problems: No - MUSCULOSKELETAL/RHEUMATOLOGICAL Hx Arthritis: Yes Hx Fractures: Yes (HX:FX. LEFT TIBIA AND ANKLE) - GASTROINTESTINAL Hx Gastrointestinal Disorders: Yes Hx Gastroesophageal Reflux: Yes - GENITOURINARY/GYNECOLOGICAL Hx Sexually Transmitted Disorders: No - PSYCHIATRIC Hx Anxiety: Yes Hx Depression: Yes Hx Substance Use: Yes - SURGICAL HISTORY Hx Cholecystectomy: Yes - ANESTHESIA Hx Anesthesia: Yes Hx Anesthesia Reactions: No Hx Malignant Hyperthermia: No Meds Allergies/Adverse Reactions: Allergies Allergy/AdvReac Type Severity Reaction Status Date / Time No Known Allergies Allergy Verified 04/12/18 18:28 Physical Exam - Constitutional Appears: Non-toxic, No Acute Distress - Head Exam Head Exam: ATRAUMATIC, NORMAL INSPECTION, NORMOCEPHALIC - Eye Exam Eye Exam: EOMI, Normal appearance - ENT Exam ENT Exam: Mucous Membranes Moist Additional comments: tongue large - Neck Exam Neck exam: Positive for: Normal Inspection. Negative for: Tenderness - Respiratory Exam Respiratory Exam: Clear to Auscultation Bilateral, NORMAL BREATHING PATTERN. absent: Rales, Rhonchi, Wheezes, Respiratory Distress, Stridor - Cardiovascular Exam Cardiovascular Exam: REGULAR RHYTHM, +S1, +S2 - GI/Abdominal Exam GI & Abdominal Exam: Soft. absent: Distended, Guarding, Rigid, Tenderness Additional comments: PEG tube in place, slightly erythematous around insertion site, no drainage noted - Extremities Exam Extremities exam: Positive for: normal inspection. Negative for: tenderness - Neurological Exam Neurological exam: Alert, CN II-XII Intact, Oriented x3 - Psychiatric Exam Psychiatric exam: Normal Affect, Normal Mood - Skin Skin Exam: Dry, Normal Color, Warm Results - Vital Signs Recent Vital Signs: Last Vital Signs Temp 98.3 F 04/12/18 21:18 Pulse 86 04/12/18 21:18 Resp 12 04/12/18 21:18 BP 104/68 04/12/18 21:18 Pulse Ox 97 04/12/18 21:21 - Labs Result Diagrams: 04/12/18 21:52 Labs: Laboratory Results - last 24 hr 04/12/18 04/12/18 04/12/18 21:52 21:52 21:57 WBC 4.2 L RBC 4.58 Hgb 9.7 L Hct 30.5 L MCV 66.5 L MCH 21.2 L MCHC 31.9 L RDW 16.2 H Plt Count 210 MPV 8.0 Neut % (Auto) 68.5 Lymph % (Auto) 17.2 L [place] % (Auto) 12.4 H Eos % (Auto) 1.7 Baso % (Auto) 0.2 Neut # (Auto) 2.8 Lymph # (Auto) 0.7 L [place] # (Auto) 0.5 Eos # (Auto) 0.1 Baso # (Auto) 0.0 PT 12.7 H INR 1.2 APTT 36 H pO2 23 L VBG pH 7.41 VBG pCO2 58 VBG HCO3 31.1 VBG Total CO2 38.6 H VBG O2 Sat (Calc) 40.8 VBG Base Excess 9.9 H VBG Potassium 4.6 Sodium 139.0 Chloride 106.0 Glucose 79 Lactate 1.2 Venous Blood Potassium 4.6 Assessment & Plan - Assessment and Plan (Free Text) Assessment: 52F w/SCC Of throat s/p PEG tube insertion with fevers & chills over past month Plan: Pain control Monitor VS ABx Further recs pending attending evaluation DW Dr. Chris Alford, PGY-2 - Date & Time Date: 04/12/18 Time: 20:50 <Nir Perez - Last Filed: 04/13/18 17:42> Meds - Medications Medications: Current Medications Alprazolam (Xanax) 0.5 mg PO Q8H PRN PRN Reason: Anxiety Last Admin: 04/13/18 12:37 Dose: 0.5 mg Gabapentin (Neurontin) 400 mg PO TID AYLIN Last Admin: 04/13/18 14:30 Dose: 400 mg Heparin Sodium (Porcine) (Heparin) 5,000 units SC Q8 [facility] Last Admin: 04/13/18 14:30 Dose: 5,000 units Piperacillin Sod/Tazobactam (Sod 3.375 gm/ Sodium Chloride) 100 mls @ 200 mls/ hr IVPB Q8H AYLIN PRN Reason: Protocol Last Admin: 04/13/18 12:31 Dose: 200 mls/hr Oxycodone/Acetaminophen (Percocet 5/325 Mg Tab) 1 tab PO Q6H PRN PRN Reason: Pain, moderate (4-7) Stop: 04/16/18 12:19 Last Admin: 04/13/18 12:37 Dose: 1 tab Trazodone HCl (Desyrel) 100 mg PO HS PRN PRN Reason: Insomnia Results - Vital Signs Recent Vital Signs: Last Vital Signs Temp 98.1 F 04/13/18 15:59 Pulse 66 04/13/18 15:59 Resp 20 04/13/18 15:59 BP 147/92 H 04/13/18 15:59 Pulse Ox 95 04/13/18 15:59 - Labs Result Diagrams: 04/12/18 21:52 04/12/18 21:52 Labs: Laboratory Results - last 24 hr 04/12/18 04/12/18 04/12/18 20:45 21:52 21:52 WBC 4.2 L RBC 4.58 Hgb 9.7 L Hct 30.5 L MCV 66.5 L MCH 21.2 L MCHC 31.9 L RDW 16.2 H Plt Count 210 MPV 8.0 Neut % (Auto) 68.5 Lymph % (Auto) 17.2 L [place] % (Auto) 12.4 H Eos % (Auto) 1.7 Baso % (Auto) 0.2 Neut # (Auto) 2.8 Lymph # (Auto) 0.7 L [place] # (Auto) 0.5 Eos # (Auto) 0.1 Baso # (Auto) 0.0 PT INR APTT pO2 VBG pH VBG pCO2 VBG HCO3 VBG Total CO2 VBG O2 Sat (Calc) VBG Base Excess VBG Potassium Glucose Lactate Sodium 140 Potassium 4.0 Chloride 98 Carbon Dioxide 32 H Anion Gap 13 BUN 7 Creatinine 0.6 L Est GFR ( Amer) > 60 Est GFR (Non-Af Amer) > 60 Random Glucose 86 Calcium 9.3 Total Bilirubin 0.7 AST 25 ALT 29 Alkaline Phosphatase 110 Total Protein 8.4 H Albumin 3.9 Globulin 4.6 H Albumin/Globulin Ratio 0.9 L Venous Blood Potassium Urine Color Yellow Urine Clarity Clear Urine pH 7.0 Ur Specific [place] 1.003 Urine Protein Negative Urine Glucose (UA) Normal Urine Ketones Negative Urine Blood Negative Urine Nitrate Negative Urine Bilirubin Negative Urine Urobilinogen Normal Ur Leukocyte Esterase Neg Urine WBC (Auto) 1 Urine RBC (Auto) 1 Ur Squamous Epith Cells 1 Urine Bacteria Rare 04/12/18 04/12/18 21:52 21:57 WBC RBC Hgb Hct MCV MCH MCHC RDW Plt Count MPV Neut % (Auto) Lymph % (Auto) [place] % (Auto) Eos % (Auto) Baso % (Auto) Neut # (Auto) Lymph # (Auto) [place] # (Auto) Eos # (Auto) Baso # (Auto) PT 12.7 H INR 1.2 APTT 36 H pO2 23 L VBG pH 7.41 VBG pCO2 58 VBG HCO3 31.1 VBG Total CO2 38.6 H VBG O2 Sat (Calc) 40.8 VBG Base Excess 9.9 H VBG Potassium 4.6 Glucose 79 Lactate 1.2 Sodium 139.0 Potassium Chloride 106.0 Carbon Dioxide Anion Gap BUN Creatinine Est GFR ( Amer) Est GFR (Non-Af Amer) Random Glucose Calcium Total Bilirubin AST ALT Alkaline Phosphatase Total Protein Albumin Globulin Albumin/Globulin Ratio Venous Blood Potassium 4.6 Urine Color Urine Clarity Urine pH Ur Specific [place] Urine Protein Urine Glucose (UA) Urine Ketones Urine Blood Urine Nitrate Urine Bilirubin Urine Urobilinogen Ur Leukocyte Esterase Urine WBC (Auto) Urine RBC (Auto) Ur Squamous Epith Cells Urine Bacteria Attending/Attestation - Attestation I have personally seen and examined this patient.: Yes I have fully participated in the care of the patient.: Yes I have reviewed all pertinent clinical information: Yes Notes (Text): Pt was seen and examined at bedside Agree with above note and assessment Pt with abdominal pain and discomfort at PEG site Labs and radiology reviewed Ass: PEG status, No evidence of infection Plan : Liquid diet f.u with GI physician for further treatment No General surgery intervention required at present Plan d.w pt in detail Risk and benefit explained in detail.
[2018-04-12 22:37] LABS: ALB/GLOB RATIO 0.9 (1.0-2.1); ALBUMIN 3.9 g/dL (3.5-5.0); ALT/SGPT 29 U/L (9-52); AST/SGOT 25 U/L (14-36); BLOOD UREA NITROGEN 7 mg/dL (7-17); CALCIUM 9.3 mg/dl (8.6-10.4); GFR NON-AFRICAN AMERICAN > 60
[2018-04-13] MEDS ORDERED: Oxycodone/Acetaminophen 5/325 mg Tab PO STA (01:32)
[2018-04-13 02:12] VITALS: RESP 20
--- NOTE | 2018-04-13 09:14 | CP.PCM.PN ---
Subjective - Date & Time of Evaluation Date of Evaluation: 04/13/18 Time of Evaluation: 09:13 - Subjective Subjective: Progress note for Dr. Jennings's service Patient was seen and examined at bedside in no acute distress. Patient was laying comfortably in bed. She complains of increasing anxiety and is requesting her anxiety medication that she takes at home. She is also complaining of back pain and requesting her pain medication. She states she currently has mild burning around her PEG site. She reports noting a yellow discharge around the PEG site two weeks ago, and has been having fevers and chills for the past two weeks (highest temp at home was 102.9F). She took ibuprofen which helped her fevers. She currently denies fevers, chills, and purulent discharge at the PEG site. The patient denies having chest pain, palpitations, dyspnea, cough, nausea, vomiting, fevers, headaches, abdominal pain, dysuria, constipation, and diarrhea. 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 Miller ENT: Dr. Salinas Objective - Vital Signs/Intake and Output Vital Signs (last 24 hours): Temp Pulse Resp BP Pulse Ox 97.9 F 71 20 137/79 96 04/13/18 08:05 04/13/18 08:05 04/13/18 08:05 04/13/18 08:05 04/13/18 08:05 - Labs Labs: 04/12/18 21:52 04/12/18 21:52 PT 12.7 SECONDS (9.7-12.2) H 04/12/18 21:52 INR 1.2 04/12/18 21:52 APTT 36 SECONDS (21-34) H 04/12/18 21:52 - Constitutional Appears: No Acute Distress - Head Exam Head Exam: NORMAL INSPECTION - Eye Exam Eye Exam: EOMI, Normal appearance - ENT Exam ENT Exam: Mucous Membranes Moist - Neck Exam Neck Exam: absent: Normal Inspection Additional comments: Enlarged, swollen appearing throat/neck, mass palpated anterolateral right side of neck - Respiratory Exam Respiratory Exam: Clear to Ausculation Bilateral, NORMAL BREATHING PATTERN. absent: Rhonchi, Wheezes, Respiratory Distress - Cardiovascular Exam Cardiovascular Exam: REGULAR RHYTHM, +S1, +S2 - GI/Abdominal Exam GI & Abdominal Exam: Soft, Normal Bowel Sounds. absent: Tenderness Additional comments: PEG in place- dressings dry, clean, intact; erythema noted surrounding insertion site. No purulent discharge noted. - Extremities Exam Extremities Exam: absent: Pedal Edema Additional comments: Track claire noted on bilateral UE & LE; ulcerated lesion post IVDU on left dominguez. - Neurological Exam Neurological Exam: Alert, Awake, Oriented x3 - Psychiatric Exam Psychiatric exam: Anxious - Skin Skin Exam: Dry, Warm Assessment and Plan - Assessment and Plan (Free Text) Assessment: PEG tube infection - General surgery consulted, Dr. Perez; help appreciated - NPO except medications - Afebrile, leukopenic, no bandemia, lactate is normal. Continue to monitor. - Blood culture: f/u - Continue wound care - Zosyn 3.75gm IV Q8h SCC of the throat - ENT consulted, Dr. Salinas, help appreciated - Endoscopy/biopsy scheduled for . - NPO except medications - Swallow evaluation ordered Depression/Anxiety/Insomnia - Continue home medications: Xanax 0.5mg PO Q8h prn, Trazadone 100mg PO HS prn Chronic Lower Back Pain - Percocet 1 tab Q6h PRN for pain Tobacco abuse - Offered nicoderm patch, patient declined. Prophylaxis - DVT: SCDs C/I LE skin infection; Heparin 5000u SC Q8h - GI: not indicated - NPO except medications - Swallow evaluation All management per Dr. Jennings.
[2018-04-13] MEDS ORDERED: OXYCODONE HCL 30 MG PO PRN (11:03)
[2018-04-13] MEDS ORDERED: Piperacillin/Tazobact 3.375 GM in Sodium Chloride 100 ML IVPB SCH (11:30)
[2018-04-13] MEDS ORDERED: Oxycodone/Acetaminophen 5/325 mg Tab PO PRN (12:18)
[2018-04-13 16:01] VITALS: BP 147/92; PULSE 66; TEMP 98.1; O2SAT 95
--- NOTE | 2018-04-13 18:32 | CON ---
DATE: 04/13/2018 REASON FOR CONSULTATION: Possible recurrent throat cancer. HISTORY OF PRESENT ILLNESS: This is a 52-year-old female status post chemoradiation for right tonsil CA, which ended. The patient was portable PET scan done, which showed increased activity in the right tonsillar area. She has a MRI done, which did not show any masses in the area. PAST MEDICAL HISTORY: As noted in the chart by me. MEDICATIONS: As noted in the chart by me. PHYSICAL EXAMINATION: HEAD: Atraumatic and normocephalic. FACE: Good facial movements bilaterally. CONSTITUTIONAL: Well fed, well nourished. COMMUNICATION: Communicates well and appropriately. EXTERNAL NOSE AND EARS: No masses. No lesions. No erythema. No edema. INTERNAL NOSE: Edema noted. No masses. No lesions. No erythema. ORAL CAVITY AND OROPHARYNX: No masses. No lesions. No erythema. No edema. LIPS AND GUMS: No masses. No lesions. No erythema. No edema. NECK: Supple. THYROID: No thyromegaly. No goiter. LYMPH NODES: No lymphadenopathy of the neck. ASSESSMENT AND PLAN: 1. Deviated septum. 2. Possible recurrent throat cancer. Since the MRI is negative due to biopsy of the tonsillar area in two days and we will go from there, I spoke to case and he agrees that since the MRI does not show any masses, it will be difficult to do a vital excision of the part. Two biopsies and then follow up with a PET scan. The patient's original PET scan was from 01/2011, therefore we will repeat the PET scan around 05/06/2018 to see if the activity came down. If the activity has not come down, then the patient should be referred to to do a wide local excision of the area if the biopsies are negative. Severo Salinas MD
--- NOTE | 2018-04-13 19:22 | CP.PCM.PN ---
Subjective - Date & Time of Evaluation Date of Evaluation: 04/13/18 Time of Evaluation: 19:19 - Subjective Subjective: Gen Surg: Dr Perez Pt S&E. NAEO. Denies f/c, n/v. tolerating PO intake prior to admission. There is no drainage of erythema surrounding PEG site. Minimal mucus production. All pt's questions answered. Not currently using G-tube. For biopsy this week Objective - Vital Signs/Intake and Output Vital Signs (last 24 hours): Temp Pulse Resp BP Pulse Ox 98.1 F 66 20 147/92 H 95 04/13/18 15:59 04/13/18 15:59 04/13/18 15:59 04/13/18 15:59 04/13/18 15:59 Intake and Output: 04/13/18 04/14/18 18:59 06:59 Intake Total 100 Balance 100 - Medications Medications: Current Medications Alprazolam (Xanax) 0.5 mg PO Q8H PRN PRN Reason: Anxiety Last Admin: 04/13/18 12:37 Dose: 0.5 mg Gabapentin (Neurontin) 400 mg PO TID [facility] Last Admin: 04/13/18 14:30 Dose: 400 mg Heparin Sodium (Porcine) (Heparin) 5,000 units SC Q8 AYLIN Last Admin: 04/13/18 14:30 Dose: 5,000 units Piperacillin Sod/Tazobactam (Sod 3.375 gm/ Sodium Chloride) 100 mls @ 200 mls/ hr IVPB Q8H AYLIN PRN Reason: Protocol Last Admin: 04/13/18 12:31 Dose: 200 mls/hr Oxycodone/Acetaminophen (Percocet 5/325 Mg Tab) 1 tab PO Q6H PRN PRN Reason: Pain, moderate (4-7) Stop: 04/16/18 12:19 Last Admin: 04/13/18 12:37 Dose: 1 tab Trazodone HCl (Desyrel) 100 mg PO HS PRN PRN Reason: Insomnia - Labs Labs: 04/12/18 21:52 04/12/18 21:52 PT 12.7 SECONDS (9.7-12.2) H 04/12/18 21:52 INR 1.2 04/12/18 21:52 APTT 36 SECONDS (21-34) H 04/12/18 21:52 - Constitutional Appears: Non-toxic - Head Exam Head Exam: NORMAL INSPECTION - Eye Exam Eye Exam: Normal appearance - ENT Exam ENT Exam: Mucous Membranes Moist - Respiratory Exam Respiratory Exam: Clear to Ausculation Bilateral. absent: Respiratory Distress - Cardiovascular Exam Cardiovascular Exam: absent: Tachycardia - GI/Abdominal Exam GI & Abdominal Exam: Soft. absent: Distended, Tenderness Additional comments: PEG site c/d/i Assessment and Plan - Assessment and Plan (Free Text) Assessment: 52F with PEG tube - no signs of infection Plan: PEG placed by GI team not surgery there is no sign of infection or complications with the PEG pt for biopsy , if negative, PEG can likely be removed as pt not using it ok for diet further complications with PEG would recommend referring to GI team who placed it d/w Dr Chris Manjarrez, PGY4
--- NOTE | 2018-04-14 08:13 | HP ---
HISTORY OF PRESENT ILLNESS: A 52-year-old female with history of abdominal pain, , history of laryngeal cancer status post radiation. PHYSICAL EXAMINATION: GENERAL: The patient is awake, alert, oriented. PEG is in place. VITAL SIGNS: Temperature 98, pulse 90. HEENT: Within normal limits. NECK: Supple. CHEST: Symmetrical. HEART: Regular. ABDOMEN: Soft. EXTREMITIES: No edema. IMPRESSION AND PLAN: The patient suffers from laryngeal cancer , ENT consult, antibiotics. Todd Jennings MD
== END 2018-04-13 17:50 | disposition left against medical advice (07) | DRG 188 ==
LOC: C.ER 17:55 → C.9E 22:43 → C.3T 04-13 00:04
PROVIDERS: ADMIT Internal Medicine Pulmonary Disease; ATTEND Internal Medicine Pulmonary Disease
DX: K94.22 Gastrostomy infection (principal); L03.311 Cellulitis of abdominal wall; F11.90 Opioid use, unspecified, uncomplicated; L97.829 Non-pressure chronic ulcer of other part of left lower leg with unspecified severity; Y83.3 Surgical operation with formation of external stoma as the cause of abnormal reaction of the patient, or of later complication, without mention of misadventure at the time of the procedure; C32.9 Malignant neoplasm of larynx, unspecified; F32.9 Major depressive disorder, single episode, unspecified; F41.9 Anxiety disorder, unspecified; G47.00 Insomnia, unspecified; G89.29 Other chronic pain; K21.9 Gastro-esophageal reflux disease without esophagitis; J34.2 Deviated nasal septum; F17.200 Nicotine dependence, unspecified, uncomplicated; D72.819 Decreased white blood cell count, unspecified; M54.5 Low back pain

== ENCOUNTER 2018-04-15 06:49 | Day surgery (SDC) | payer MEDICAID ==
[2018-03-30 13:04] VITALS: BMI 21.2
[2018-04-15 08:05] LABS: BARBITURATES, UR NEGATIVE (NEGATIVE); PHENCYCLIDINE, UR NEGATIVE (NEGATIVE)
[2018-04-15] MEDS ORDERED: Dextrose 5%/0.45% NS 1,000 ML IV SCH (08:15)
[2018-04-15] MEDS ORDERED: Midazolam 2 MG/2 ML VIAL ONE (08:16)
[2018-04-15] MEDS ORDERED: Propofol 10 mg/ml Inj (20 ML) ONE (08:16)
[2018-04-15 08:26] LABS: BENZODIAZEPINES, UR POSITIVE (NEGATIVE); OPIATES, UR POSITIVE (NEGATIVE)
[2018-04-15] MEDS: ceFAZolin 1 gm in NS 1 GM/100 ML BAG IVPB ONE (08:30)
[2018-04-15 10:16] VITALS: TEMP 97.6
[2018-04-15 10:20] VITALS: RESP 16
[2018-04-15 11:25] VITALS: BP 118/67; PULSE 55; O2SAT 96
--- NOTE | 2018-04-15 20:20 | OP ---
PROCEDURE DATE: 04/15/2018 PREOPERATIVE DIAGNOSES: Possible right tonsil lesion, possible right base of tongue lesion. POSTOPERATIVE DIAGNOSES: Possible right tonsil lesion, possible right base of tongue lesion. SIGNIFICANT FINDINGS: No masses. No lesions. PROCEDURE: Direct laryngoscopy with biopsy. SURGEON: Severo Salinas MD. DESCRIPTION OF PROCEDURE: The patient was brought into the room and placed in the supine position. Anesthesia was initiated through an ET tube. Shoulder roll was placed, neck extended. A wet gauz was placed over the upper gums in order to protect them. A direct laryngoscope was inserted into the oral cavity and passed to the oropharynx and hypopharynx. The base of the tongue, vallecula, epiglottis, AE folds, false cords, true cords, pyriform sinuses, arytenoids, pharyngeal elise, and tonsils were brought into view. No masses or lesions were noted. Biopsies of the right base of tongue and tonsils were taken. Bleeding was controlled using cold water irrigation. The direct laryngoscope was removed. The patient was taken off the anesthesia and taken to the recovery room in stable manner. Severo Salinas MD MTDD
== END 2018-04-15 11:20 | disposition home or self-care (01) ==
LOC: C.SDS 06:49
PROVIDERS: ATTEND Otolaryngology
DX: C09.9 Malignant neoplasm of tonsil, unspecified (principal)

== ENCOUNTER 2018-10-25 11:41 | Outpatient (CLI) | payer MEDICAID | END 2018-10-25 11:42 | disposition home or self-care (01) | LOC: C.MAMMO 11:41 | DX: Z12.31 Encounter for screening mammogram for malignant neoplasm of breast (principal) ==